=== PATIENT | female | born 1995 | race Two or more races ===

== ENCOUNTER 2019-05-12 21:30 | Emergency (ER) | payer SELFPAY ==
[~2019-05-12] VITALS: Ht 157.5 cm; Wt 63.5 kg
[2019-05-12 22:16] VITALS: BP 126/61
[2019-05-12] MEDS ORDERED: PNV1TABL25 PO (22:38)
--- NOTE | 2019-05-12 22:38 | PHYS DOC ---
Adult General Chief Complaint Chief Complaint: TEST [facility] HPI Patient is a 23 year old female who presents to the ED today stating she did a test a couple days ago which was positive. Her last menstrual cycle is March 13, 2019. She is a 2 para 1. She has no complaints today other than asking if her baby is okay. Marine Equipment Engineer line was used for [place]. (FRAN CATALAN APRN) Review of Systems Review of Systems Constitutional: Denies fever or chills [] Eyes: Denies change in visual acuity, redness, or eye pain [] HENT: Denies nasal congestion or sore throat [] Respiratory: Denies cough or shortness of breath [] Cardiovascular: No additional information not addressed in HPI [] GI: Reports positive test. Denies abdominal pain, nausea, vomiting, bloody stools or diarrhea [] : Denies dysuria or hematuria [] Musculoskeletal: Denies back pain or joint pain [] Integument: Denies rash or skin lesions [] Neurologic: Denies headache, focal weakness or sensory changes [] All other systems were reviewed and found to be within normal limits, except as documented in this note. (FRAN CATALAN APRN) Physical Exam Physical Exam Constitutional: Well developed, well nourished, no acute distress, non-toxic appearance. [] HENT: Normocephalic, atraumatic, bilateral external ears normal, oropharynx moist, no oral exudates, nose normal. [] Eyes: PERRLA, EOMI, conjunctiva normal, no discharge. [] Neck: Normal range of motion, no tenderness, supple, no stridor. [] Cardiovascular:Heart rate regular rhythm, no murmur [] Lungs & Thorax: Bilateral breath sounds clear to auscultation [] Abdomen: Bowel sounds normal, soft, no tenderness, no masses, no pulsatile masses. [] Skin: Warm, dry, no erythema, no rash. [] Back: No tenderness, no CVA tenderness. [] Extremities: No tenderness, no cyanosis, no clubbing, ROM intact, no edema. [] Neurologic: Alert and oriented X 3, normal motor function, normal sensory function, no focal deficits noted. [] Psychologic: Affect normal, judgement normal, mood normal. [] (FRAN CATALAN APRN) Current Patient Data Vital Signs Vital Signs Date Time Temp Pulse Resp B/P (MAP) Pulse Ox O2 Delivery O2 Flow Rate FiO2 05/12/19 22:16 98.8 80 18 126/61 (82) 99 Room Air 98.8 (CLAUDIA ARANDA DO) Lab Values Laboratory Tests Test 05/12/19 21:58 POC Urine HCG, Qualitative Hcg positive (Negative) (CLAUDIA ARANDA DO) EKG EKG [] (FRAN CATALAN APRN) Radiology/Procedures Radiology/Procedures [] (FRAN CATALAN APRN) Course & Med Decision Making Course & Med Decision Making Pertinent Labs and Imaging studies reviewed. (See chart for details) This is a 23-year-old female patient who presents to the ED today stating she had a test at home which was positive. She has no complaints. She just wants to make sure her baby is okay. She has no abdominal pain, no vaginal bleeding. No other concerning symptoms. Informed her as long as she doesn't have any other symptoms and has a positive test at home considering her last menstrual cycle was March 13, 2019 she can follow up with an ELECTRICAL SYSTEMS DRAFTER as an outpatient. Requested urine to do a hCG in the ED as well as a UA. She states she just voided in the waiting area and there is no way she can produce urine at this point. I discharged her home. Provided an ELECTRICAL SYSTEMS DRAFTER to follow up. She has no concerning symptoms to warrant further workup. (FRAN CATALAN APRN) Dragon Disclaimer Dragon Disclaimer This electronic medical record was generated, in whole or in part, using a voice recognition dictation system. (FRAN CATALAN APRN) Departure Departure Impression: Primary Impression: Possible , not confirmed Disposition: 01 HOME, SELF-CARE Condition: STABLE Referrals: NO PCP (PCP) COLBY ORNELAS MD You can follow-up with the provided ELECTRICAL SYSTEMS DRAFTER or one of the local clinics Patient Instructions: ABCs of Additional Instructions: You were evaluated in the emergency room for . Please follow-up with one of the clinics from the list provided. Also start taking vitamins. Scripts [facility] Cmb#95/Ferrous Fumarate/Fa ( TABLET) 1 Each Tablet 1 TAB PO DAILY, #90 TAB 3 Refills Prov: FRAN CATALAN APRN 05/12/19 Attending Signature Attending Signature I have reviewed the PA/PATTERN MARKER's note and plan of care. I was available for consultation as needed during the patient's visit in the emergency department. I agree with the clinical impression, plan, and disposition. (CLAUDIA ARANDA DO) FRAN CATALAN APRN May 12, 2019 22:38 CLAUDIA ARANDA DO May 13, 2019 02:28
== END 2019-05-12 23:03 | disposition home or self-care (01) ==
LOC: ER 21:30
DX: Z32.01 Encounter for pregnancy test, result positive (principal)
CPT/HCPCS: 81025; 99282